=== PATIENT | male | born 1995 | race Caucasian/White ===

== ENCOUNTER 2018-02-01 18:22 | Emergency (ER) | payer OTHER, BC ==
[2018-02-01 18:24] VITALS: TEMP 36.8
[2018-02-01] MEDS ORDERED: PRE WORKOUT PO (18:54)
[2018-02-01] MEDS ORDERED: LEVOPOW PO (18:54)
[2018-02-01] MEDS ORDERED: BCAA PO (18:54)
[2018-02-01] MEDS ORDERED: NAPR1TAB9 PO (18:54)
[2018-02-01 18:58] LABS: BASO % 0.2 %; BASO ABS # 0.01 K/uL (0-0.2); EOS % 0.5 %; EOS ABS # 0.03 K/uL (0-0.5); HEMATOCRIT 44.9 % (42-52); HEMOGLOBIN 16.6 g/dL (14.0-18.0); IG# 0.01 K/uL (0.00-0.02); LYMPH % 25.1 %; LYMPH ABS # 1.67 K/uL (1.2-3.4); MEAN CELL VOLUME 85.9 fL (80-100); MEAN CORPUSCULAR HEMOGLOBIN 31.7 pg (25-34); MEAN PLATELET VOLUME 10.8 fL (7.4-10.4); MONO % 13.8 %; MONO ABS # 0.92 K/uL (0.11-0.59); NEUT % 60.2 %; NEUT ABS # 4.02 K/uL (1.4-6.5); PLATELET COUNT 211 K/uL (130-400); RED CELL DISTRIBUTION WIDTH SD 37.5 fL (36.4-46.3); WHITE BLOOD COUNT 6.66 K/uL (4.8-10.8)
--- NOTE | 2018-02-01 19:12 | DIAGNOSTIC IMAGING REPORT ---
CHEST ONE VIEW PORTABLE CLINICAL HISTORY: htn dyspnea COMPARISON STUDY: No previous studies for comparison. FINDINGS: The bones soft tissues and hemidiaphragms are normal. The cardiomediastinal silhouette is normal. The lungs are clear. The pulmonary vasculature is normal. IMPRESSION: Negative chest. The above report was generated using voice recognition software. It may contain grammatical, syntax or spelling errors. Electronically signed by: Galileo Hunt M.D. 02/01/2018 7:11 PM Dictated Date/Time: 02/01/2018 7:10 PM
[2018-02-01 19:14] LABS: BLOOD UREA NITROGEN 18 mg/dl (7-18); CALCIUM 9.7 mg/dl (8.5-10.1); CARBON DIOXIDE 27 mmol/L (21-32); CREATININE 1.17 mg/dl (0.60-1.40); GLUCOSE 96 mg/dl (70-99); POTASSIUM 3.2 mmol/L (3.5-5.1); SODIUM 140 mmol/L (136-145)
[2018-02-01 19:27] VITALS: BP 142/82; PULSE 89; O2SAT 98
--- NOTE | 2018-02-01 23:50 | EMERGENCY ROOM VISIT NOTE ---
History Report prepared by Yared: Xuan Camacho Under the Supervision of: Dr. Luis Jarquin D.O. First contact with patient: 18:27 Chief Complaint: HYPERTENSION Stated Complaint: HBP, LIGHTHEADED -WC History of Present Illness The patient is a 22 year old male who presents to the Emergency Room with complaints of hypertension beginning today. He reports he sat down to work and he felt mildly lightheaded. 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 He reports he had his blood pressure taken by the nurse at the senior care and it was 149/92. He thinks that eating at the senior care might elevate his blood pressure. Patient has no other complaints at this time. He notes the feeling of being flushed is completely resolved. Pt denies headache, change in vision, fevers, chest pain, shortness of breath, nausea, vomiting, diarrhea, pain with urination, and melena. Patient denies diabetes, hypertension, hyperlipidemia, CAD, history of sudden at a young age, and smoking. Source of History: patient Onset: today Position: other (upper and lower extremities) Symptom Intensity: mild Modifying Factors (Worsening): other (Eating at the senior care) Associated Symptoms: No headache, No chest pain, No SOB, No nausea, No vomiting, No melena, No diarrhea, No urinary symptoms Note: Positive dizziness. Negative changes in vision. Review of Systems See HPI for pertinent positives & negatives. A total of 10 systems reviewed and were otherwise negative. Family History Patient reports no known family medical history. Social History Smoking Status: Former Smoker Smokeless Tobacco Use: Unknown Marital Status: single Occupation Status: employed Current/Historical Medications Scheduled Levocarnitine (Bulk) (L-Carnitine), 1 DOSE PO UD Naproxen (Aleve), 440 MG PO PRN UD [Bcaa], 1 DOSE PO UD [Pre Workout], 1 DOSE PO UD Allergies Coded Allergies: No Known Allergies (Unverified , 12/30/15) Physical Exam Vital Signs Date Time Temp Pulse Resp B/P (MAP) Pulse Ox O2 Delivery O2 Flow Rate FiO2 02/01/18 19:27 89 20 142/82 98 02/01/18 18:47 98 02/01/18 18:24 36.8 96 20 142/85 99 Room Air Physical Exam GENERAL: Sitting up in chair, alert, well appearing, well nourished, no distress , non-toxic EYE EXAM: normal conjunctiva. PERRL and EOM's intact. OROPHARYNX: no exudate, no erythema, lips, buccal mucosa, and tongue normal and mucous membranes are moist NECK: supple, no nuchal rigidity, no adenopathy, non-tender LUNGS: Clear to auscultation. Normal chest wall mechanics HEART: no murmurs, S1 normal and S2 normal ABDOMEN: abdomen soft, non-tender, normo-active bowel sounds, no masses, no rebound or guarding. BACK: Back is symmetrical on inspection and there is no deformity, no midline tenderness, no CVA tenderness. SKIN: no rashes and no bruising UPPER EXTREMITIES: upper extremities are grossly normal. LOWER EXTREMITIES: No pitting edema. Calves are equal bilaterally. NEURO EXAM: Normal sensorium, cranial nerves II-XII grossly intact, normal speech, no gross weakness of arms, no gross weakness of legs. Ambulatory without difficulty. Medical Decision & Procedures ER Provider Diagnostic Interpretation: Radiology results as stated below per my review and the radiologist's interpretation: CHEST ONE VIEW PORTABLE CLINICAL HISTORY: htn dyspnea COMPARISON STUDY: No previous studies for comparison. FINDINGS: The bones soft tissues and hemidiaphragms are normal. The cardiomediastinal silhouette is normal. The lungs are clear. The pulmonary vasculature is normal. IMPRESSION: Negative chest. The above report was generated using voice recognition software. It may contain grammatical, syntax or spelling errors. Electronically signed by: Galileo Hunt M.D. 02/01/2018 7:11 PM Laboratory Results 02/01/18 18:50 Red Blood Count 5.23, Mean Corpuscular Volume 85.9, Mean Corpuscular Hemoglobin 31.7, Mean Corpuscular Hemoglobin Concent 37.0, Mean Platelet Volume 10.8, Neutrophils (%) (Auto) 60.2, Lymphocytes (%) (Auto) 25.1, Monocytes (%) (Auto) 13.8, Eosinophils (%) (Auto) 0.5, Basophils (%) (Auto) 0.2, Neutrophils # (Auto ) 4.02, Lymphocytes # (Auto) 1.67, Monocytes # (Auto) 0.92, Eosinophils # (Auto ) 0.03, Basophils # (Auto) 0.01 02/01/18 18:50 Test 02/01/18 18:50 White Blood Count 6.66 K/uL (4.8-10.8) Red Blood Count 5.23 M/uL (4.7-6.1) Hemoglobin 16.6 g/dL (14.0-18.0) Hematocrit 44.9 % (42-52) Mean Corpuscular Volume 85.9 fL (80-100) Mean Corpuscular Hemoglobin 31.7 pg (25-34) Mean Corpuscular Hemoglobin Concent 37.0 g/dl (32-36) Platelet Count 211 K/uL (130-400) Mean Platelet Volume 10.8 fL (7.4-10.4) Neutrophils (%) (Auto) 60.2 % Lymphocytes (%) (Auto) 25.1 % Monocytes (%) (Auto) 13.8 % Eosinophils (%) (Auto) 0.5 % Basophils (%) (Auto) 0.2 % Neutrophils # (Auto) 4.02 K/uL (1.4-6.5) Lymphocytes # (Auto) 1.67 K/uL (1.2-3.4) Monocytes # (Auto) 0.92 K/uL (0.11-0.59) Eosinophils # (Auto) 0.03 K/uL (0-0.5) Basophils # (Auto) 0.01 K/uL (0-0.2) RDW Standard Deviation 37.5 fL (36.4-46.3) RDW Coefficient of Variation 12.0 % (11.5-14.5) Immature Granulocyte % (Auto) 0.2 % Immature Granulocyte # (Auto) 0.01 K/uL (0.00-0.02) Anion Gap 6.0 mmol/L (3-11) Estimated GFR () 101.2 Estimated GFR (Non- 87.4 BUN/Creatinine Ratio 15.5 (10-20) Calcium Level 9.7 mg/dl (8.5-10.1) Laboratory results per my review. ECG Per My Interpretation Indication: other (hypertension) Rate (beats per minute): 86 Rhythm: sinus rhythm Findings: no ectopy, other (normal axis) ED Course ED COURSE: Vital signs were reviewed and showed normal The patients medical record was reviewed The above diagnostic studies were performed and reviewed. ED treatments and interventions as stated above. 1830: The patient was evaluated in room B2. A complete history and physical examination was performed. 191: Upon reevaluation, the patient is agreeable.I discussed my findings with the patient and he understands and agrees with the treatment plan. Based on the patients age, coexisting illnesses, exam and lab findings the decision to treat as an outpatient was made. The patient remained stable while under my care. The patient appeared well at the time of discharge. Medical Decision Differenital diagnosis includes etiologies such as benign positional vertigo, dehydration, hypovolemia, anemia, tumor, infection, hypoglycemia, electrolyte abnormalities, cardiac sources, intracerebral event, toxicologic, neurologic, as well as others were entertained. Patient is a 22-year-old male who was working at the present and felt a little lightheaded. He checked his blood pressure was elevated. He is referred in for evaluation. He has no complaints. No significant past medical history. He is neurologically intact and able to ambulate without difficulty. CBC along with BMP was unremarkable. EKG and chest x-ray are benign. Patient was updated at bedside. Discharge to follow-up with PCP as an outpatient. Discussed with Pt concerning signs and symptoms to watch out for. Pt was instructed to follow up with their PCP and discussed with the patient their option to return to the ED at anytime for persistent or worsening symptoms. The appropriate anticipatory guidance and out-patient management, including indications for return to the emergency department, were explained at length to the patient and understood. Medication Reconcilliation Current Medication List: was personally reviewed by me Blood Pressure Screening Patient's blood pressure: Elevated blood pressure Blood pressure disposition: Elevated BP felt to be situational Impression Primary Impression: Hypertension Scribe Attestation The scribe's documentation has been prepared under my direction and personally reviewed by me in its entirety. I confirm that the note above accurately reflects all work, treatment, procedures, and medical decision making performed by me. Departure Information Dispostion Home / Self-Care Referrals No Doctor, Assigned (PCP) Patient Instructions My [facility] Additional Instructions Please follow up with your primary care doctor with in the next 24 hours. Any worsening of your symptoms, please return to the ED immediately. This includes any fevers greater than 100.4, worsening pain, chest pain, shortness breath, persistent nausea, vomiting, unable to eat or drink, or any other concerning signs or symptoms from your standpoint. You were found to have a blood pressure greater than 120 systolic over 90 diastolic. Due to the new Medicare guidelines, we are now recommending that you follow up with your primary care doctor in regards to this elevated blood pressure. Problem Qualifiers Primary Impression: Hypertension Hypertension type: unspecified Qualified Codes: I10 - Essential (primary) hypertension
== END 2018-02-01 19:28 | disposition home or self-care (01) ==
LOC: C.EDB 18:23
DX: I10 Essential (primary) hypertension (principal); Z87.891 Personal history of nicotine dependence; Z79.899 Other long term (current) drug therapy